=== PATIENT | male | born 1950 | race Caucasian/White ===

== ENCOUNTER 2022-03-03 06:17 | Day surgery (SDC) | payer BC, SELFPAY ==
--- NOTE | 2022-03-02 09:35 | P.CONAN_ITS ---
Documented by User: Andreina Dow NP 03/02/22 09:37 HPI - Anesthesia Eval Consult details Narrative: 71yo M for ?Upper Endoscopy Cardiac cleared REPLACED BY [facility] Active Problems Active Problems: All Active Problems (Updated 03/02/22 @ 07:46 by Karolina Perez, RN) Screening PSA (prostate specific antigen) (Acute) Skin lesion (Acute) Lump of skin of left lower extremity (Acute) Elevated fasting blood sugar (Acute) Encounter for pre-operative examination (Acute) Encounter for annual wellness visit (AWV) in Medicare patient (Acute) HTN (hypertension) (Acute) Past Medical History Medical History (Updated 03/02/22 @ 07:46 by Karolina Perez RN) Barretts esophagus COPD (chronic obstructive pulmonary disease) Coronary artery disease Diastolic dysfunction GERD (gastroesophageal reflux disease) Hiatal hernia HTN (hypertension) Psoriasis Raynauds disease Ventricular ectopy Family History Family History Father Myocardial infarction Mother Breast cancer Surgical History Surgical History (Updated 03/03/22 @ 07:01 by Clementina Zhao) H/O colonoscopy H/O endoscopy History of appendectomy History of cataract surgery History of inguinal hernia repair, bilateral Social History Social History Housing: House Alcohol intake: current Alcohol intake frequency: 3 or more drinks per day Alcohol type: beer Patient Tobacco Use Status: Never used Tobacco e-Cigarette/Vaping Use: Never Used Second Hand Smoke Exposure: No Use of substances other than those prescribed or required for medical reasons: No Are you DNR?: No Advance Directives: No Advance Directives Information Provided: Yes Current occupational status: retired Cognitive needs: No Hearing needs: No Vision needs: No Meds Allergies Allergy/AdvReac Type Severity Reaction Status Date / Time pravastatin Allergy Unknown Verified 03/03/22 06:24 shellfish derived Allergy Unknown Verified 03/03/22 06:24 atorvastatin AdvReac Unknown Diarrhea Verified 03/03/22 06:24 Home Medications Medication Instructions Recorded Confirmed Last Taken Type aspirin 81 mg tablet,delayed 81 mg PO DAILY 04/02/20 03/03/22 02/24/22 History release cholecalciferol (vitamin D3) 50 50 mcg PO DAILY 1103/03/22 03/03/22 05:00 History mcg (2,000 unit) tablet ezetimibe 10 mg tablet 10 mg PO DAILY 04/02/20 03/03/22 Unknown History lisinopril 20 mg tablet 10 mg PO DAILY 04/02/20 03/03/22 03/03/22 05:00 History metoprolol succinate 50 mg capsule 75 mg PO DAILY 04/02/20 03/03/22 03/03/22 05:00 History sprinkle, ext. 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) No change from 2018 Assessment and Plan Assessment Anesthesia Assessment: Chart Reviewed Documented by User: Matteo Tidwell MD 03/03/22 17:13 REPLACED BY [facility] Past Medical History Medical History (Updated 03/02/22 @ 07:46 by Karolina Perez RN) Barretts esophagus COPD (chronic obstructive pulmonary disease) Coronary artery disease Diastolic dysfunction GERD (gastroesophageal reflux disease) Hiatal hernia HTN (hypertension) Psoriasis Raynauds disease Ventricular ectopy Functional capacity: independent ambulation Family History Family History Father Myocardial infarction Mother Breast cancer Family history of problems with anesthesia: No Surgical History Surgical History (Updated 03/03/22 @ 07:01 by Clementina Zhao) H/O colonoscopy H/O endoscopy History of appendectomy History of cataract surgery History of inguinal hernia repair, bilateral History of Problems with Anesthesia: No Social History Social History Housing: House Alcohol intake: current Alcohol intake frequency: 3 or more drinks per day Alcohol type: beer Patient Tobacco Use Status: Never used Tobacco e-Cigarette/Vaping Use: Never Used Second Hand Smoke Exposure: No Use of substances other than those prescribed or required for medical reasons: No Are you DNR?: No Advance Directives: No Advance Directives Information Provided: Yes Current occupational status: retired Cognitive needs: No Hearing needs: No Vision needs: No Meds Allergies Allergy/AdvReac Type Severity Reaction Status Date / Time pravastatin Allergy Unknown Verified 03/03/22 06:24 shellfish derived Allergy Unknown Verified 03/03/22 06:24 atorvastatin AdvReac Unknown Diarrhea Verified 03/03/22 06:24 Home Medications Medication Instructions Recorded Confirmed Last Taken Type aspirin 81 mg tablet,delayed 81 mg PO DAILY 04/02/20 03/03/22 02/24/22 History release cholecalciferol (vitamin D3) 50 50 mcg PO DAILY 04/02/20 03/03/22 03/03/22 05:00 History mcg (2,000 unit) tablet ezetimibe 10 mg tablet 10 mg PO DAILY 04/02/20 03/03/22 Unknown History lisinopril 20 mg tablet 10 mg PO DAILY 04/02/20 03/03/22 03/03/22 05:00 History metoprolol succinate 50 mg capsule 75 mg PO DAILY 04/02/20 03/03/22 03/03/22 05:00 History sprinkle, ext. release 24 hr amlodipine 1 tab PO DAILY 03/03/22 03/03/22 03/03/22 05:00 History Exam Airway Mallampati Class: III TM Dist: >3cm Neck ROM: Full Loose/Missing/Broken Teeth: Yes (Chipped front teeth ) Heart: S1,S2 Lungs: b/l breath sounds Assessment and Plan Assessment Anesthesia Assessment: Anesthesia Plan Discussed Final Anesthetic Review Family History of Problems with Anesthesia: No History of Problems with Anesthesia: No NPO: Yes ASA Class: II Final Preanesthetic Review: Meds/Allgs Chart Reviewed, Consent Obtained/Reviewed and Anes Risks/Benef Reviewed Patient Risk: Intermediate Procedure Risk: Intermediate Anesthetic Plan Anesthetic Plan: MAC: Disposition: Standard PACU
[2022-03-03 06:32] VITALS: BP 142/74; PULSE 58; RESP 16; TEMP 36.6; O2SAT 98; BMI 22.9
[2022-03-03] MEDS: Lactated Ringers 1,000 ML 100 ML IVCONT (06:50)
--- NOTE | 2022-03-03 07:23 | MHC.SHP ---
Pre-Procedural Eval Section A Date of Service: 03/03/22 Section B Chief Complaint: barretts Details of Present Illness: see H&P no changes Relevant Family History (Specify if Yes): No Relevant Social History: None Present Medications: see Short Stay Collaborative assessment Medical History: No relevant PMH History of Previous Operations: No relevant previous surgery Allergies: Allergies Allergy/AdvReac Type Severity Reaction Status Date / Time pravastatin Allergy Unknown Verified 03/03/22 06:24 shellfish derived Allergy Unknown Verified 03/03/22 06:24 atorvastatin AdvReac Unknown Diarrhea Verified 03/03/22 06:24 Review of Systems Sugical H&P ROS: Negative: Constitution, Cardiovascular, Respiratory, Neurological, Psychiatric, Hem-Onc, Allergic/Immunologic, Gastrointestinal, Genitourinary, Musculoskeletal, Integumentary, Endocrine and Eyes/Ears/Nose/Throat Exam Surgical H&P Exam: Normal: HEENT, Normal: Heart, Normal: Lungs, Normal: Extremities, Normal: Abdomen, Normal: Skin and Normal: Neurological Plan Diagnosis/Plan: Unchanged I have reviewed the history and physical and performed a pertinent physical examination on my patient. No changes have occurred unless specified.
--- NOTE | 2022-03-03 07:52 | PM.OP ---
Brief Operative Note Date of Service: 03/03/22 Pre-op diagnosis: barretts Post-op diagnosis: same Procedure: egd Surgeon: Sagar Raza Anesthesia: MAC Was an Drywall Worker used for this Procedure?: No Estimated blood loss (mL): 2 Pathology: other Condition: stable Disposition: PACU
[2022-03-03 07:55] VITALS: BP 106/61; PULSE 59; RESP 16; TEMP 36.3; O2SAT 96
[2022-03-03 08:10] VITALS: BP 112/61; PULSE 63; RESP 14; O2SAT 100
[2022-03-03 08:25] VITALS: BP 138/79; PULSE 61; RESP 16; O2SAT 97
--- NOTE | 2022-03-03 21:04 | OP_ITS ---
SURGEON: Sagar Raza MD PREOPERATIVE DIAGNOSIS: POSTOPERATIVE DIAGNOSIS: PROCEDURE PERFORMED: Upper endoscopy with biopsy. ESTIMATED BLOOD LOSS: COMPLICATIONS: ANESTHESIA: Monitored anesthesia care. ASSISTANTS: SPECIMENS: INDICATION: Loyd esophagus. DESCRIPTION OF PROCEDURE: The procedure was performed on 03/03/2022. A history and physical were performed. The risks and benefits of the procedure were explained to the patient. Informed consent was obtained. The patient was placed in the left lateral decubitus position. The Olympus video gastroscope was introduced into the esophagus, stomach, and duodenum. Examination was performed. The scope was removed. He tolerated the procedure well and returned to the recovery room in stable condition. FINDINGS: Esophagus: The esophagus showed a few whitish plaques in the body. Biopsies were obtained at 40 cm to rule out Lyssa. There was an irregular EG junction with no esophagitis. Biopsies were obtained at the EG junction. Stomach: The stomach showed no evidence of masses, ulcers, or polyps. Duodenum: The bulb and second portion were normal. IMPRESSION: Loyd esophagus. RECOMMENDATION: Follow up the biopsy results. MD LISA Moreno/TITO / [id number]
== END 2022-03-03 09:06 | disposition home or self-care (01) ==
PROVIDERS: PCP Nurse Practitioner Family; Visit Provider Internal Medicine Gastroenterology
PROC: 0DJ08ZZ Inspection of Upper Intestinal Tract, Via Natural or Artificial Opening Endoscopic (ICD-10-PCS; CPT 43235; principal; 2022-03-03 07:30)
DX: K22.70 Barrett's esophagus without dysplasia (principal); K21.9 Gastro-esophageal reflux disease without esophagitis; I10 Essential (primary) hypertension; J44.9 Chronic obstructive pulmonary disease, unspecified; Z79.82 Long term (current) use of aspirin; Z79.899 Other long term (current) drug therapy; Z79.51 Long term (current) use of inhaled steroids; Z88.8 Allergy status to other drugs, medicaments and biological substances
CPT/HCPCS: 43239; 88305

== ENCOUNTER 2023-01-19 06:30 | Outpatient (REF) | payer BC, SELFPAY ==
[2023-01-19 14:07] LABS: CDiff Gene PCR NEGATIVE (Negative)
[2023-01-19 15:18] LABS: Adenovirus F 40/41 Not Detected (Not Detect.); Astrovirus Not Detected (Not Detect.); Campylobacter Not Detected (Not Detect.); Cryptosporidium Not Detected (Not Detect.); Cyclospora cayetanensis Not Detected (Not Detect.); E. coli EAEC Not Detected (Not Detect.); E. coli EPEC Not Detected (Not Detect.); E. coli ETEC Not Detected (Not Detect.); E. coli O157 Not Detected (Not Detect.); E. coli STEC Not Detected (Not Detect.); Entamoeba histolytica Not Detected (Not Detect.); Giardia lamblia Not Detected (Not Detect.); Norovirus GI/GII Not Detected (Not Detect.); Plesiomonas shigelloides Not Detected (Not Detect.); Rotavirus A Not Detected (Not Detect.); Salmonella Not Detected (Not Detect.); Sapovirus Not Detected (Not Detect.); Shigella sp./EIEC Not Detected (Not Detect.); Vibrio Not Detected (Not Detect.); Vibrio Cholerae Not Detected (Not Detect.); Yersinia enterocolitica Not Detected (Not Detect.)
== END 2023-01-19 06:31 | disposition home or self-care (01) ==
LOC: HO.HMGCLNP 06:30
PROVIDERS: PCP Nurse Practitioner Family; Visit Provider Nurse Practitioner Family
DX: R19.7 Diarrhea, unspecified (principal)
CPT/HCPCS: 87338; 87493; 87507

== ENCOUNTER 2023-01-22 13:26 | Outpatient (REF) | payer BC, SELFPAY ==
[2023-01-22 15:56] LABS: MANUAL DIFF FLAG NO
[2023-01-22 16:10] LABS: Basophils Absolute Auto 0.1 X10*3/uL (0.0-0.2); Basophils Percent Auto 1.2 % (0-2); Eosinophils Absolute Auto 0.2 X10*3/uL (0.0-0.4); Eosinophils Percent Auto 3.3 % (0-4); Hematocrit 42.8 % (42.0-52.0); Hemoglobin 14.6 g/dl (14.0-18.0); Imm Gran Abs Auto 0.02 X10*3/uL (0.00-0.03); Imm Gran Pct Auto 0.3 % (0.0-0.4); Lymphocytes Absolute Auto 1.2 X10*3/uL (1.2-4.9); Lymphocytes Percent Auto 17.7 % (20-40); Mean Corpuscular HGB Conc 34.1 g/dl (31.0-36.0); Mean Corpuscular Hemoglobin 32.6 pg (27.0-33.0); Mean Corpuscular Volume 95.5 fL (80.0-98.0); Mean Platelet Volume 11.3 fL (9.4-12.4); Monocytes Absolute Auto 0.9 X10*3/uL (0.1-1.2); Neutrophils Absolute Auto 4.3 x10*3/uL (2.0-8.3); Neutrophils Percent Auto 63.5 % (45-73); Platelet Count 182 X10*3/uL (160-400); Red Blood Count 4.48 X10*6/uL (4.60-5.80); Red Cell Distribution Width 11.9 % (11.0-16.0); White Blood Count 6.7 X10*3/uL (4.8-10.8)
[2023-01-22 16:36] LABS: Alanine Aminotransferase 14 U/L (0-40); Albumin Level 3.9 g/dL (3.5-5.0); Alkaline Phosphatase 57 U/L (39-117); Anion Gap 12 (12-20); Aspartate Amino Transferase 26 U/L (5-37); Bilirubin Total 1.3 mg/dL (0.0-1.0); Blood Urea Nitrogen 14 mg/dL (9-16); C Reactive Protein 0.17 mg/dL (< or = 0.50); Carbon Dioxide 25 mmol/L (22-29); Chloride 107 mmol/L (96-108); Estimated Glomerular Filt Rate > 60; Glucose Random 90 mg/dL (60-115); Potassium 5.1 mmol/L (3.3-5.1); Sodium 139 mmol/L (135-145); TSH reflex Free T4 1.66 uIU/mL (0.32-4.0); Total Protein 6.8 g/dL (6.5-8.0)
[2023-01-22 17:17] LABS: Erythrocyte Sedimentation Rate 5 MM/HR (0-15)
== END 2023-01-22 13:27 | disposition home or self-care (01) ==
LOC: HO.HMGCLDS 13:26
PROVIDERS: PCP Nurse Practitioner Family; Visit Provider Nurse Practitioner Family
DX: R63.4 Abnormal weight loss (principal); R19.7 Diarrhea, unspecified
CPT/HCPCS: 36415; 80053; 84443; 85025; 85652; 86140

== ENCOUNTER 2023-01-29 09:12 | Outpatient (REF) | payer BC, SELFPAY ==
[2023-01-29 11:23] LABS: MANUAL DIFF FLAG NO
[2023-01-29 11:37] LABS: Basophils Absolute Auto 0.1 X10*3/uL (0.0-0.2); Basophils Percent Auto 1.3 % (0-2); Eosinophils Absolute Auto 0.2 X10*3/uL (0.0-0.4); Eosinophils Percent Auto 4.3 % (0-4); Hematocrit 44.5 % (42.0-52.0); Imm Gran Abs Auto 0.01 X10*3/uL (0.00-0.03); Imm Gran Pct Auto 0.2 % (0.0-0.4); Lymphocytes Percent Auto 21.1 % (20-40); Mean Corpuscular HGB Conc 33.7 g/dl (31.0-36.0); Mean Corpuscular Hemoglobin 32.8 pg (27.0-33.0); Mean Corpuscular Volume 97.4 fL (80.0-98.0); Mean Platelet Volume 11.3 fL (9.4-12.4); Monocytes Absolute Auto 0.8 X10*3/uL (0.1-1.2); Monocytes Percent Auto 17.8 % (2-11); Neutrophils Absolute Auto 2.6 x10*3/uL (2.0-8.3); Neutrophils Percent Auto 55.3 % (45-73); Platelet Count 191 X10*3/uL (160-400); Red Blood Count 4.57 X10*6/uL (4.60-5.80); Red Cell Distribution Width 11.9 % (11.0-16.0); White Blood Count 4.7 X10*3/uL (4.8-10.8)
[2023-01-29 12:12] LABS: Alanine Aminotransferase 14 U/L (0-40); Albumin Level 3.8 g/dL (3.5-5.0); Alkaline Phosphatase 56 U/L (39-117); Anion Gap 9 (12-20); Aspartate Amino Transferase 25 U/L (5-37); Bilirubin Total 1.1 mg/dL (0.0-1.0); Blood Urea Nitrogen 12 mg/dL (9-16); Calcium 8.8 mg/dL (8.4-10.2); Carbon Dioxide 29 mmol/L (22-29); Chloride 106 mmol/L (96-108); Cholesterol 132 mg/dL (<200); Estimated Glomerular Filt Rate > 60; Glucose Fasting 99 mg/dL (60-99); HDL Cholesterol 44 mg/dL (>40); LDL Cholesterol Calculated 76 mg/dL (<100); Potassium 4.4 mmol/L (3.3-5.1); Sodium 140 mmol/L (135-145); Total Protein 6.7 g/dL (6.5-8.0); Triglycerides 64 mg/dL (<150)
[2023-01-29 12:33] LABS: TSH reflex Free T4 1.34 uIU/mL (0.32-4.0)
[2023-01-29 12:35] LABS: Prostate Specific Antigen Scr 3.22 ng/mL (<0.05-4.0)
== END 2023-01-29 09:13 | disposition home or self-care (01) ==
LOC: HO.HMGCLDS 09:12
PROVIDERS: PCP Nurse Practitioner Family; Visit Provider Nurse Practitioner Family
DX: Z12.5 Encounter for screening for malignant neoplasm of prostate (principal); I10 Essential (primary) hypertension
CPT/HCPCS: 36415; 80053; 80061; 84153; 84443; 85025

== ENCOUNTER 2023-01-30 06:30 | Outpatient (REF) | payer BC, SELFPAY ==
[2023-01-30 11:56] LABS: Appearance Urine Clear; Color Urine Yellow; Glucose Urine UA Negative (Negative); Leukocyte Esterase Urine Negative (Negative); Nitrite Urine Negative (Negative); PH 6.5 (5.0-9.0); Urine Blood Negative (Negative); Urine Ketones Negative (Negative); Urine Protein Negative (Neg-Trace)
== END 2023-01-30 06:31 | disposition home or self-care (01) ==
LOC: HO.HMGCLNP 06:30
PROVIDERS: PCP Nurse Practitioner Family; Visit Provider Nurse Practitioner Family
DX: I10 Essential (primary) hypertension (principal)
CPT/HCPCS: 81003

== ENCOUNTER 2023-02-10 12:05 | Day surgery (SDC) | payer BC, SELFPAY ==
[2023-02-10 06:26] VITALS: BMI 24.3
[2023-02-10 12:35] VITALS: BP 132/76; PULSE 72; RESP 18; TEMP 36.3; O2SAT 98
[2023-02-10] MEDS: Lactated Ringers 1,000 ML 50 ML IVCONT (12:48)
--- NOTE | 2023-02-10 13:13 | P.CONAN_ITS ---
HPI - Anesthesia Eval Consult details Narrative: for colonoscopy PMFSH Active Problems Active Problems: All Active Problems (Updated 01/28/23 @ 18:07 by Power Ku, [facility]) Colitis (Acute) Enlarged prostate (Acute) Weight loss (Acute) Diarrhea (Acute) Physical exam (Acute) Screening PSA (prostate specific antigen) (Acute) Skin lesion (Acute) Lump of skin of left lower extremity (Acute) Elevated fasting blood sugar (Acute) Encounter for pre-operative examination (Acute) Encounter for annual wellness visit (AWV) in Medicare patient (Acute) HTN (hypertension) (Acute) Past Medical History Medical History Ventricular ectopy Diastolic dysfunction COPD (chronic obstructive pulmonary disease) Raynauds disease Coronary artery disease HTN (hypertension) Hiatal hernia Psoriasis GERD (gastroesophageal reflux disease) Barretts esophagus Family History Family History Father Myocardial infarction Mother Breast cancer Family history of problems with anesthesia: No Surgical History Surgical History History of cataract surgery H/O colonoscopy H/O endoscopy History of inguinal hernia repair, bilateral History of appendectomy History of Problems with Anesthesia: No Social History Social History Housing: House Alcohol intake: current Alcohol intake frequency: does not drink Alcohol type: beer Patient Tobacco Use Status: Never used Tobacco e-Cigarette/Vaping Use: Never Used Second Hand Smoke Exposure: No Are you DNR?: No Advance Directives: No Advance Directives Information Provided: Yes Nutrition Risks: No Nutritional Risk Current occupational status: retired Cognitive needs: No Hearing needs: No Vision needs: No Meds Allergies Allergy/AdvReac Type Severity Reaction Status Date / Time pravastatin Allergy Unknown Verified 08/31/22 11:38 shellfish derived Allergy Unknown Verified 08/31/22 11:38 atorvastatin AdvReac Unknown Diarrhea Verified 08/31/22 11:38 Active Medications: Current Medications Lactated Ringer's (Lr) 1,000 mls @ 50 mls/hr IVCONT .Q20H YO Last Admin: 02/10/23 12:48 Dose: 50 mls/hr Home Medications Medication Instructions Recorded Confirmed Last Taken Type aspirin 81 mg tablet,delayed 81 mg PO DAILY 04/02/20 08/31/22 01/25/23 History release cholecalciferol (vitamin D3) 50 50 mcg PO DAILY 04/02/20 08/31/22 03/03/22 05:00 History mcg (2,000 unit) tablet ezetimibe 10 mg tablet 10 mg PO DAILY 04/02/20 08/31/22 Unknown History lisinopril 20 mg tablet 10 mg PO DAILY 04/02/20 08/31/22 03/03/22 05:00 History metoprolol succinate 50 mg capsule 75 mg PO DAILY 04/02/20 08/31/22 02/10/23 History sprinkle, ext. release 24 hr amlodipine 1 tab PO DAILY 03/03/22 08/31/22 03/03/22 05:00 History Exam Exam Date and Time: February 10, 2023 1313 Height,Weight and Vital Signs: Height 5 ft 11 in Weight 78.925 kg Last Vital Signs Temp 97.4 F 02/10/23 12:35 Pulse 72 02/10/23 12:35 Resp 18 02/10/23 12:35 BP 132/76 02/10/23 12:35 Pulse Ox 98 02/10/23 12:35 O2 Del Method Room Air 02/10/23 12:35 Airway Mallampati Class: II TM Dist: >3cm Neck ROM: Full Heart: rrr Lungs: cta Assessment and Plan Assessment Anesthesia Assessment: Anesthesia Plan Discussed and Chart Reviewed Final Anesthetic Review Family History of Problems with Anesthesia: No History of Problems with Anesthesia: No NPO: Yes ASA Class: III Final Preanesthetic Review: No Changes in Pt Med Stat, Meds/Allgs Chart Reviewed, Consent Obtained/Reviewed and Anes Risks/Benef Reviewed Patient Risk: Low Procedure Risk: Low Anesthetic Plan Anesthetic Plan: MAC: Disposition: Standard PACU
--- NOTE | 2023-02-10 13:39 | MHC.SHP ---
Pre-Procedural Eval Section A Date of Service: 02/10/23 The patient is an INPATIENT: No Changes since office visit: No Cold of Flu in the past 2 weeks, No New Medical Problems, No Changes in Medication and No Patient answered all questions The History & Physical has been completed within 30 days and I have reviewed it.: Yes Section B Chief Complaint: diarrhea,abnormal findings Allergies: Allergies Allergy/AdvReac Type Severity Reaction Status Date / Time pravastatin Allergy Unknown Verified 08/31/22 11:38 shellfish derived Allergy Unknown Verified 08/31/22 11:38 atorvastatin AdvReac Unknown Diarrhea Verified 08/31/22 11:38 Plan I have reviewed the history and physical and performed a pertinent physical examination on my patient. No changes have occurred unless specified. Time Spent With Patient Time: Total time managing care of this patient today ____ minutes.
--- NOTE | 2023-02-10 14:05 | P.BOP_ITS ---
Brief Operative Note Date of Service: 02/10/23 Pre-op diagnosis: diarrhea abnl ct scan Surgeon: Sagar Raza Anesthesia: MAC Was an Slotter Operator Helper used for this Procedure?: No Estimated blood loss (mL): 2 Pathology: other Condition: stable Disposition: PACU
[2023-02-10 14:10] VITALS: BP 127/68; PULSE 65; RESP 16; TEMP 36.9; O2SAT 98
[2023-02-10 14:25] VITALS: BP 142/79; PULSE 60; RESP 18; TEMP 36.1; O2SAT 98
--- NOTE | 2023-02-10 22:55 | OP_ITS ---
DATE OF SERVICE: 02/10/2023 SURGEON: Sagar Raza MD INDICATIONS: Diarrhea and abnormal CT scan of the sigmoid. PREOPERATIVE DIAGNOSIS: POSTOPERATIVE DIAGNOSIS: PROCEDURE PERFORMED: Colonoscopy to the terminal ileum. ESTIMATED BLOOD LOSS: COMPLICATIONS: ANESTHESIA: Monitored anesthesia care. ASSISTANTS: SPECIMENS: DESCRIPTION OF PROCEDURE: A history and physical was performed. The risks and benefits of the procedure were explained to the patient. Informed consent was obtained. The patient was placed in the left lateral decubitus position. A digital rectal exam was performed and was found to be normal. The Olympus pediatric video colonoscope was introduced into the rectum and advanced to the cecum. The cecum was identified by transillumination, palpation, and identification of ileocecal valve. Examination was performed. The scope was removed. He tolerated the procedure well and was returned to the recovery area in stable condition. FINDINGS: The terminal ileum was examined and appeared normal. This was biopsied. The visualized colonic mucosa was normal. The quality of the prep was good with some liquid stool coating the mucosa mainly in the right colon. This was washed and suctioned. No polyps were identified. No colitis was seen. The sigmoid colon was carefully examined and the abnormal area identified on the CT scan. The mucosa appeared normal. There was no evidence of colitis. Biopsies were obtained from the right colon and sigmoid colon. Retroflexed examination showed internal hemorrhoids. IMPRESSION: Normal colonoscopy. RECOMMENDATION: 1. Follow up the biopsy results. 2. Repeat colonoscopy is recommended in 10 years for average risk individuals. This is optional based on his age. MD LISA Moreno/MODL / [id number]
== END 2023-02-10 15:26 | disposition home or self-care (01) ==
PROVIDERS: PCP Nurse Practitioner Family; Visit Provider Internal Medicine Gastroenterology
PROC: 0DJD8ZZ Inspection of Lower Intestinal Tract, Via Natural or Artificial Opening Endoscopic (ICD-10-PCS; CPT 45378; principal; 2023-02-10 13:40)
DX: R93.3 Abnormal findings on diagnostic imaging of other parts of digestive tract (principal); R19.7 Diarrhea, unspecified; K64.8 Other hemorrhoids; I10 Essential (primary) hypertension; B37.81 Candidal esophagitis; J44.9 Chronic obstructive pulmonary disease, unspecified; K21.9 Gastro-esophageal reflux disease without esophagitis; K44.9 Diaphragmatic hernia without obstruction or gangrene; I73.00 Raynaud's syndrome without gangrene; Z79.899 Other long term (current) drug therapy
CPT/HCPCS: 45380; 88305

== ENCOUNTER 2023-04-29 14:13 | Outpatient (AMB) | payer BC, SELFPAY ==
--- NOTE | 2023-04-29 14:29 | MHC.PC.OV ---
Vital Signs 04/29/23 14:30 Height 5 ft 11 in Weight 176 lb BMI 24.5 BP 112/70 Blood Pressure Location Rt brachial Position Sitting Pulse 57 Pulse Source Pulse Oximeter Pulse Oximetry (%) 98 Oxygen Delivery Method Room Air Intake Visit Reasons: 6 month follow up Allergies pravastatin Allergy (Verified 08/31/22 11:38) Unknown shellfish derived Allergy (Verified 08/31/22 11:38) Unknown atorvastatin Adverse Reaction (Unknown, Verified 08/31/22 11:38) Diarrhea Tobacco use date assessed: 08/31/22 Fall risk assessment: No Falls in past year Last assessed Fall Risk: 04/29/23 Dental Screening Dental Screen Date: 04/29/23 Did you have a dental visit in the last 12 months?: Yes Did you have a dental problem in the last 6 months where you did not have access to dental care?: No Was dental information given to patient?: Patient has dentist HPI 6 month follow up HPI Details HTN: Blood pressure is stable, managed with amlodipine 5mg, lisinopril 10mg, and metoprolol 75mg. Denies chest pain, shortness of breath, headache, dizziness, and blurred vision. Pt is following up with urology due to enlarged prostate. [facility] Medical History Ventricular ectopy Diastolic dysfunction COPD (chronic obstructive pulmonary disease) Raynauds disease Coronary artery disease HTN (hypertension) Hiatal hernia Psoriasis GERD (gastroesophageal reflux disease) Barretts esophagus Surgical History History of cataract surgery H/O colonoscopy H/O endoscopy History of inguinal hernia repair, bilateral History of appendectomy Family History Father Myocardial infarction Mother Breast cancer Social History Housing: House Alcohol intake: current Alcohol intake frequency: does not drink Alcohol type: beer Patient Tobacco Use Status: Never used Tobacco e-Cigarette/Vaping Use: Never Used Second Hand Smoke Exposure: No Current occupational status: retired Cognitive needs: No Hearing needs: No Vision needs: No Questionnaire Thrive Questionnaire Date Thrive assessed: 08/31/22 AGUSTO-7 AMB Questionnaire AGUSTO-7 Date AGUSTO - 7 assessed: 08/31/22 Source: Developed by Drs. Amaury Toledo, Corry Casarez, Cristino Stringer and colleagues, with an educational jack from [employer]. Review of Systems Const Reports as per HPI Physical exam (Primary Care) Vital Signs: Last Vital Signs Pulse 57 04/29/23 14:30 BP 112/70 04/29/23 14:30 Pulse Ox 98 04/29/23 14:30 Oxygen Delivery Method Room Air 04/29/23 14:30 BMI result Body Mass Index 24.5 Tobacco/Smoking Status: Tobacco use Status Tobacco use date assessed 08/31/22 04/29/23 14:32 Patient Tobacco Use Status Never used Tobacco 04/29/23 14:32 e-Cigarette/Vaping Use Never Used 04/29/23 14:32 Thrive Assessment: Date of Thrive Assessment Date Thrive assessed 08/31/22 04/29/23 14:32 Const General: cooperative Orientation/consciousness: patient oriented x3 Resp Effort & Inspection: normal respiratory effort Auscultation: clear to auscultation bilaterally Cardio Rate: regular rate Rhythm: regular rhythm Heart sounds: S1 normal heart sound present and S2 normal heart sound present Neuro General: patient oriented x3 Extrem Right lower extremity: no edema Left lower extremity: no edema Psych Appearance: grossly normal Mental Status: mental status grossly normal Speech and movement: Normal speech and movement present Affect: normal affect Attitude: cooperative Thought process: Normal thought process present Thought content: Normal thought content present Insight: Good insight present (Psych) Judgement: Good judgement present (Psych) Assessment and Plan Assessment & Plan (1) HTN (hypertension): Code(s): I10 - Essential (primary) hypertension Coding Level of Care Code Est Pt Level 3 (07198) Diagnoses HTN (hypertension) I10
[2023-04-29 14:30] VITALS: BP 112/70; PULSE 57; O2SAT 98; BMI 24.5
== END 2023-04-29 15:36 | disposition home or self-care (01) ==
PROVIDERS: PCP Nurse Practitioner Family; Visit Provider Nurse Practitioner Family
DX: I10 Essential (primary) hypertension (principal)
CPT/HCPCS: 99213

== ENCOUNTER 2023-09-06 10:10 | Outpatient (AMB) | payer BC, SELFPAY ==
--- NOTE | 2023-09-06 10:30 | MHC.PC.OV ---
Vital Signs 09/06/23 10:33 Weight 180 lb BP 114/60 Blood Pressure Location Rt brachial Position Sitting Pulse 61 Pulse Source Pulse Oximeter Pulse Oximetry (%) 93 Oxygen Delivery Method Room Air Intake Visit Reasons: Annual PE Intake Note: Patient here for physical exam. Allergies pravastatin Allergy (Verified 09/06/23 10:54) Unknown shellfish derived Allergy (Verified 09/06/23 10:54) Unknown atorvastatin Adverse Reaction (Unknown, Verified 09/06/23 10:54) Diarrhea Medication List - Last Reconciled 09/06/23 by BRITNEY Eaton [amlodipine 1 tab PO DAILY] aspirin 81 mg PO DAILY cholecalciferol (vitamin D3) 50 mcg PO DAILY clobetasol 0.05% 1 appl topical BID 2 weeks desoximetasone 0.25% 1 appl topical DAILY PRN 90 days evolocumab (Repatha SureClick) 140 mg subcut Q2W ezetimibe 10 mg PO DAILY fluticasone propionate 50 mcg/actuation 1 spray intranasal DAILY 30 days lisinopril 10 mg PO DAILY metoprolol succinate ER 75 mg PO DAILY omeprazole 20 mg PO DAILY tamsulosin 0.4 mg PO BEDTIME trospium ER 60 mg PO DAILY Tobacco use date assessed: 09/06/23 Fall risk assessment: No Falls in past year Last assessed Fall Risk: 09/06/23 Dental Screening Dental Screen Date: 09/06/23 Did you have a dental visit in the last 12 months?: Yes Did you have a dental problem in the last 6 months where you did not have access to dental care?: No Was dental information given to patient?: Patient has dentist HPI Annual PE HPI Details Pt is here for a PE. Will order labs. PSA is up to date. Pt follows up with cardiology and urology. Colon screen is up to date. [facility] Medical History Ventricular ectopy Diastolic dysfunction COPD (chronic obstructive pulmonary disease) Raynauds disease Coronary artery disease HTN (hypertension) Hiatal hernia Psoriasis GERD (gastroesophageal reflux disease) Barretts esophagus Surgical History History of cataract surgery H/O colonoscopy H/O endoscopy History of inguinal hernia repair, bilateral History of appendectomy Family History Father Myocardial infarction Mother Breast cancer Social History Housing: House Alcohol intake: current Alcohol intake frequency: does not drink Alcohol type: beer Patient Tobacco Use Status: Never used Tobacco e-Cigarette/Vaping Use: Never Used Second Hand Smoke Exposure: No Current occupational status: retired Cognitive needs: No Hearing needs: No Vision needs: No Questionnaire Thrive Questionnaire Date Thrive assessed: 08/31/22 AUDIT C Alcohol Use Questionnaire (AUDIT-C) 1. How often do you have a drink containing alcohol?: 2-4 times a month 2. How many drinks containing alcohol do you have on a typical day when you are drinking?: 1 or 2 3. How often do you have six or more drinks on one occasion?: Never Total Score: 2 Score Reviewed/Action Taken: No AGUSTO-7 AMB Questionnaire AGUSTO-7 Date AGUSTO - 7 assessed: 08/31/22 Source: Developed by Drs. Amaury Toledo, Corry Casarez, Cristino Stringer and colleagues, with an educational jack from [employer]. Review of Systems Const Denies chills and Denies fever(s) Eyes Denies blurry vision ENT Denies vertigo, Denies dizziness and Denies sore throat Card Denies chest pain at rest, Denies chest pain with activity, Denies diaphoresis, Denies dyspnea and Denies dyspnea on exertion Resp Denies cough, Denies dyspnea, Denies dyspnea on exertion and Denies wheezing GI Denies abdominal pain, Denies melena, Denies hematochezia, Denies constipation, Denies diarrhea and Denies loose stools Denies hematuria Musc Denies numbness and Denies tingling Skin/Breast Denies lesions Neuro Denies vertigo, Denies dizziness, Denies numbness and Denies tingling Psych Denies anxiety, Denies depression, Denies homicidal ideation, Denies suicidal ideation and Denies other (substance abuse) Aller/Immun Denies wheezing Physical exam (Primary Care) Vital Signs: Last Vital Signs Pulse 61 09/06/23 10:33 BP 114/60 09/06/23 10:33 Pulse Ox 93 09/06/23 10:33 Oxygen Delivery Method Room Air 09/06/23 10:33 Tobacco/Smoking Status: Tobacco use Status Tobacco use date assessed 09/06/23 09/06/23 10:34 Patient Tobacco Use Status Never used Tobacco 09/06/23 10:34 e-Cigarette/Vaping Use Never Used 09/06/23 10:34 Thrive Assessment: Date of Thrive Assessment Date Thrive assessed 08/31/22 09/06/23 10:34 Const General: cooperative Nutritional Appearance: well nourished Orientation/consciousness: patient oriented x3 HENMT Head: Yes normal to inspection, Yes normocephalic and Yes atraumatic Ears: TM's normal bilaterally Eyes General: appearance normal, both eyes and all related structures Alignment and Position: alignment normal and position normal Neck Neck: Yes normal visual inspection and Yes no lymphadenopathy Thyroid: Thyroid normal Resp Effort & Inspection: normal respiratory effort Auscultation: clear to auscultation bilaterally Cardio Rate: regular rate Rhythm: regular rhythm Heart sounds: S1 normal heart sound present, S2 normal heart sound present and no murmurs GI Palpation (GI): Soft to palpation and nontender Auscultation: normal bowel sounds Male General Exam: Yes normal external exam Penis: normal penis Scrotum: scrotum normal, testes descended bilaterally and no inguinal hernias Testes: no testicular mass Skin Rashes: no rashes Neuro General: patient oriented x3, moves all extremities, no focal motor deficits and deep tendon reflexes 2+ bilaterally Romberg Test: Negative Extrem Right lower extremity: no edema Left lower extremity: no edema Psych Appearance: grossly normal Mental Status: mental status grossly normal Speech and movement: Normal speech and movement present Affect: normal affect Attitude: cooperative Thought process: Normal thought process present Thought content: Normal thought content present Insight: Good insight present (Psych) Judgement: Good judgement present (Psych) Assessment and Plan Assessment & Plan (1) Physical exam: Code(s): Z00.00 - Encounter for general adult medical examination without abnormal findings Plan: Labs ordered Orders: Orders Complete Blood Count Auto Diff Today Z00.00 - Encounter for general adult medical examination without abnormal findings Comprehensive Bronson. Panel Fast Today Z00.00 - Encounter for general adult medical examination without abnormal findings TSH reflex Free T4 Today Z00.00 - Encounter for general adult medical examination without abnormal findings UA CC w/rflx Micro + Cult Today Z00.00 - Encounter for general adult medical examination without abnormal findings Lipid Panel Today Z00.00 - Encounter for general adult medical examination without abnormal findings Vitamin D 25-OH Total Today Z00.00 - Encounter for general adult medical examination without abnormal findings Coding Level of Care Code Est Pt Prev Care >65y(01375) Diagnoses Physical exam Z00.00
[2023-09-06 10:33] VITALS: BP 114/60; PULSE 61; O2SAT 93
== END 2023-09-06 11:13 | disposition home or self-care (01) ==
PROVIDERS: Visit Provider Nurse Practitioner Family
DX: Z00.00 Encounter for general adult medical examination without abnormal findings (principal)
CPT/HCPCS: 99397

== ENCOUNTER 2023-11-06 09:04 | Outpatient (AMB) | payer BC, SELFPAY ==
[2023-11-06 09:07] VITALS: BP 120/7; PULSE 65; TEMP 36.6; O2SAT 95; BMI 24.4
--- NOTE | 2023-11-06 09:07 | MHC.OFFWIV ---
Intake Vital Signs 11/06/23 09:07 Height 5 ft 11 in Weight 175 lb BMI 24.4 BP 120/7 L Blood Pressure Location Lt brachial Position Sitting Pulse 65 Pulse Source Pulse Oximeter Temp 97.8 F Temp Source Temporal Artery Scan Pulse Oximetry (%) 95 Oxygen Delivery Method Room Air Intake Visit Reasons: EP Ciugh, mucus, sinus Intake Note: pt is here today for cough mucus sinus started 2 days ago Patient Tobacco Use Status: Never used Tobacco Allergies pravastatin Allergy (Verified 11/06/23 09:14) Unknown shellfish derived Allergy (Verified 11/06/23 09:14) Unknown atorvastatin Adverse Reaction (Unknown, Verified 11/06/23 09:14) Diarrhea Do you need a note to return to daycare/school/sports/work: No HPI EP Ciugh, mucus, sinus HPI Details Patient is a 73-year-old male with a history of coronary artery disease and COPD, comes to the walk-in clinic complaining of acute nasal congestion, headache, dry cough, and sinus pressure for the last few days. He tested positive on a home test for COVID today. He denies severe sore throat, chest pain, shortness of breath, nausea vomiting or diarrhea, weakness or dizziness, myalgias or malaise, ear pain, or other significant associated symptoms. [facility] Medical History Ventricular ectopy Diastolic dysfunction COPD (chronic obstructive pulmonary disease) Raynauds disease Coronary artery disease HTN (hypertension) Hiatal hernia Psoriasis GERD (gastroesophageal reflux disease) Barretts esophagus Surgical History History of cataract surgery H/O colonoscopy H/O endoscopy History of inguinal hernia repair, bilateral History of appendectomy Family History Father Myocardial infarction Mother Breast cancer Social History Housing: House Alcohol intake: current Alcohol intake frequency: does not drink Alcohol type: beer Patient Tobacco Use Status: Never used Tobacco e-Cigarette/Vaping Use: Never Used Second Hand Smoke Exposure: No Current occupational status: retired Cognitive needs: No Hearing needs: No Vision needs: No Review of Systems Const All systems reviewed & are unremarkable except as noted in HPI and below Physical Exam Vital Signs: Last Vital Signs Temp 97.8 F 11/06/23 09:07 Pulse 65 11/06/23 09:07 BP 120/7 L 11/06/23 09:07 Pulse Ox 95 11/06/23 09:07 Oxygen Delivery Method Room Air 11/06/23 09:07 BMI result Body Mass Index 24.4 Const General: cooperative, healthy appearing, comfortable, no acute distress, alert, awake, Physically active and well groomed; No anxious, diaphoretic, intoxicated appearing, poor hygiene or tired appearing Nutritional Appearance: average body habitus Orientation/consciousness: oriented to person Limitations: no limitations HEENT Head: Yes normal to inspection, Yes normocephalic and Yes atraumatic Ears: hearing grossly normal bilaterally, external ears normal, TM's normal bilaterally and EAC's normal General nose exam: Normal external nose present and Nasal discharge present Face and sinus: Yes normal facial exam, Yes sinuses nontender and Yes face symmetric Mouth: Normal oral and palatal mucosa present, lip normal and tongue normal Throat: Yes posterior oropharynx normal, No peritonsillar mass, Yes postnasal drainage, No uvular edema and No cobblestoning Eyes General: appearance normal, both eyes and all related structures Neck Neck: Yes normal visual inspection, Yes supple and No anterior neck swelling Chest Chest palpation & inspection: normal palpation of entire chest wall Resp Effort & Inspection: normal respiratory effort, able to speak in complete sentences, no audible wheezes, no cough, no grunting, not labored, no nasal flaring, no retractions and symmetric chest movement Auscultation: clear to auscultation bilaterally, no crackles, no rales, no rhonchi, no wheezes, lung sounds not diminished and No rub present Cardio Palpation: normal PMI Rate: regular rate Rhythm: regular rhythm Heart sounds: S1 normal heart sound present and S2 normal heart sound present Skin Other: Good color, warm and dry Neuro General: oriented to person Psych Appearance: grossly normal Mental Status: mental status grossly normal Speech and movement: Normal speech and movement present Affect: normal affect Attitude: cooperative Thought process: Normal thought process present Insight: Good insight present (Psych) Judgement: Good judgement present (Psych) Assessment & Plan Assessment & Plan (1) COVID: Code(s): U07.1 - COVID-19 Plan: Patient is a 73-year-old male with history of COPD and coronary artery disease, who comes to the walk-in clinic complaining of viral symptoms associated with COVID. He is more worried about transmitting this to his , who plans to undergo minor surgery in a few days. I discussed with him that due to his history and age, he is high-risk for having issues associated with COVID, so Paxlovid was prescribed today. He has no active cough, shortness of breath or respiratory distress, so we withheld on a chest x-ray today. He will take [id number] medication as needed otherwise for symptom relief, and guaifenesin was called in for him today. He will monitor symptoms and follow up if they persist or worsen. He knows to go to the emergency department for worrisome symptoms. Medications: New nirmatrelvir-ritonavir 300 mg (150 mg x 2)-100 mg (Paxlovid) take TWO 150 mg tablets of nirmatrelvir with ONE 100 mg tablet of ritonavir twice daily for 5 days PO 30 ea 0RF guaifenesin 400 mg PO TID PRN 30 tabs 1RF congestion Coding Level of Care Code Est Pt Level 4 (04791) Diagnoses COVID U07.1
== END 2023-11-06 10:15 | disposition home or self-care (01) ==
PROVIDERS: PCP Nurse Practitioner Family; Visit Provider Physician Assistant Medical
DX: U07.1 COVID-19 (principal)
CPT/HCPCS: 99214

== ENCOUNTER 2023-12-10 10:44 | Outpatient (AMB) | payer BC, SELFPAY ==
--- NOTE | 2023-12-10 10:45 | MHC.OFFWIV ---
Intake Vital Signs 12/10/23 10:47 Height 5 ft 11 in Weight 175 lb BMI 24.4 BP 128/62 Blood Pressure Location Rt brachial Position Sitting Pulse 63 Pulse Source Pulse Oximeter Temp 97.0 F Temp Source Temporal Artery Scan Pulse Oximetry (%) 97 Oxygen Delivery Method Room Air Intake Visit Reasons: EP Lower RT back pain Intake Note: pt c/o Lower RT back pain. Twisted back while lifting a ladder yesterday Patient Tobacco Use Status: Never used Tobacco Allergies pravastatin Allergy (Verified 12/10/23 10:46) Unknown shellfish derived Allergy (Verified 12/10/23 10:46) Unknown atorvastatin Adverse Reaction (Unknown, Verified 12/10/23 10:46) Diarrhea Do you need a note to return to daycare/school/sports/work: No HPI HPI Comments History of Present Illness Details 73 y/o male patient who presents to the walk in clinic with c/o low back pain since yesterday. 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 Reports feeling sharp pain immediately. Denies urinary or bowel symptoms. Denies prior surgeries on the back. [facility] Medical History Ventricular ectopy Diastolic dysfunction COPD (chronic obstructive pulmonary disease) Raynauds disease Coronary artery disease HTN (hypertension) Hiatal hernia Psoriasis GERD (gastroesophageal reflux disease) Barretts esophagus Surgical History History of cataract surgery H/O colonoscopy H/O endoscopy History of inguinal hernia repair, bilateral History of appendectomy Family History Father Myocardial infarction Mother Breast cancer Social History Housing: House Alcohol intake: current Alcohol intake frequency: does not drink Alcohol type: beer Patient Tobacco Use Status: Never used Tobacco e-Cigarette/Vaping Use: Never Used Second Hand Smoke Exposure: No Current occupational status: retired Cognitive needs: No Hearing needs: No Vision needs: No Review of Systems Const All systems reviewed & are unremarkable except as noted in HPI and below Physical Exam Vital Signs: Last Vital Signs Temp 97.0 F 12/10/23 10:47 Pulse 63 12/10/23 10:47 BP 128/62 12/10/23 10:47 Pulse Ox 97 12/10/23 10:47 Oxygen Delivery Method Room Air 12/10/23 10:47 BMI result Body Mass Index 24.4 Const General: comfortable and no acute distress Nutritional Appearance: well nourished Orientation/consciousness: patient oriented x3 Back/Spine/Pelvis Back: back tenderness Thoracic/Lumbar Spine: thoraco-lumbar ROM normal, thoraco-lumbar spasm on the right and lumbar spinal tenderness at L4 and at L5 Neuro General: patient oriented x3, gait normal and moves all extremities Psych Speech and movement: Normal speech and movement present Assessment & Plan Assessment & Plan (1) Low back pain: Code(s): M54.50 - Low back pain, unspecified Qualifiers: Chronicity: acute Back pain laterality: right Sciatica presence: without sciatica Qualified Code(s): M54.50 - Low back pain, unspecified Plan: Get some rest, avoid lifting heavy objects, bending at the waist and prolonged Sitting. IceHot Acetaminophen and Ibuprofen for pain relief RTC if not better. Medications: New ibuprofen 600 mg PO Q6H PRN 20 tabs 0RF pain M54.50 - Low back pain, unspecified prednisone 20 mg PO DAILY 10 days 10 tabs 0RF M54.50 - Low back pain, unspecified cyclobenzaprine 10 mg PO BEDTIME 10 tabs 0RF M54.50 - Low back pain, unspecified lidocaine 5% leave on most painful area for up to 12 hrs 1 patch topical DAILY 15 ea 0RF M54.50 - Low back pain, unspecified Discontinued fluticasone propionate 50 mcg/actuation administer into each nostril Discontinued Reason: Patient Completed Course 1 spray intranasal DAILY 30 days 15.8 mL 2RF guaifenesin Discontinued Reason: Patient Completed Course 400 mg PO TID PRN 30 tabs 1RF congestion Coding Level of Care Code Est Pt Level 3 (45600) Diagnoses Acute right-sided low back pain without sciatica M54.50 Chronicity: acute Back pain laterality: right Sciatica presence: without sciatica Time Spent (min) 15
[2023-12-10 10:47] VITALS: BP 128/62; PULSE 63; TEMP 36.1; O2SAT 97; BMI 24.4
== END 2023-12-10 11:06 | disposition home or self-care (01) ==
PROVIDERS: PCP Nurse Practitioner Family; Visit Provider Nurse Practitioner Family
DX: M54.50 Low back pain, unspecified (principal)
CPT/HCPCS: 99213

== ENCOUNTER 2024-02-14 09:41 | Outpatient (AMB) | payer BC, SELFPAY ==
--- NOTE | 2024-02-14 09:44 | A.OFFPC_ITS ---
Vital Signs 02/14/24 09:45 Height 5 ft 11 in Weight 179 lb 8 oz BMI 25.0 BP 120/60 Blood Pressure Location Lt brachial Position Sitting Pulse 50 Pulse Source Pulse Oximeter Pulse Oximetry (%) 98 Oxygen Delivery Method Room Air Intake Visit Reasons: 6M F/U Allergies pravastatin Allergy (Verified 02/14/24 09:46) Unknown shellfish derived Allergy (Verified 02/14/24 09:46) Unknown atorvastatin Adverse Reaction (Unknown, Verified 02/14/24 09:46) Diarrhea Tobacco use date assessed: 02/14/24 Fall risk assessment: No Falls in past year Last assessed Fall Risk: 02/14/24 Dental Screening Dental Screen Date: 02/14/24 HPI 6M F/U HPI Details HTN: Blood pressure is stable, managed with amlodipine 5mg, lisinopril 10mg, and metoprolol. Dyslipidemia: Pt is on repatha. Awaiting labs. Denies chest pain, shortness of breath, headache, dizziness, and blurred vision. [facility] Medical History Ventricular ectopy Diastolic dysfunction COPD (chronic obstructive pulmonary disease) Raynauds disease Coronary artery disease HTN (hypertension) Hiatal hernia Psoriasis GERD (gastroesophageal reflux disease) Barretts esophagus Surgical History History of cataract surgery H/O colonoscopy H/O endoscopy History of inguinal hernia repair, bilateral History of appendectomy Family History Father Myocardial infarction Mother Breast cancer Social History Housing: House Alcohol intake: current Alcohol intake frequency: does not drink Alcohol type: beer Patient Tobacco Use Status: Never used Tobacco e-Cigarette/Vaping Use: Never Used Second Hand Smoke Exposure: No service: No Current occupational status: retired Cognitive needs: No Hearing needs: No Vision needs: No Questionnaire PHQ-9 Over the last 2 weeks, how often have you been bothered by any of the following problems? 1. Little interest or pleasure in doing things: not at all 2. Feeling down, depressed, or hopeless: not at all 3. Trouble falling or staying asleep, or sleeping too much: not at all 4. Feeling tired or having little energy: not at all 5. Poor appetite or overeating: not at all 6. Feeling bad about yourself - or that you are a failure or have let yourself or your family down: not at all 7. Trouble concentrating on things, such as reading the newspaper or watching television: not at all 8. Moving or speaking so slowly that other people could have noticed. Or the opposite - being so fidgety or restless that you have been moving around a lot more than usual: not at all 9. Thoughts that you would be better off or of hurting yourself in some way: not at all Total score: 0 Depression Screening Interpretation: Negative Depression Screening Done: Yes 76034 - PHQ-9 Billing: Yes Source: Developed by Drs. Amaury Toledo, Corry Casarez, Cristino Stringer and colleagues, with an educational jack from [employer] Thrive Questionnaire Date Thrive assessed: 02/14/24 I am a: Patient What is your living situation today?: I have a steady place to live Within the past 12 months, did the food you bought not last and you didn't have the money to get more?: Never true Within the past 12 months, did you worry whether your food would run out before you got money to buy more?: Never true Do you have trouble paying for medicines?: No Do you have trouble getting transportation to medical appointments?: No Do you have trouble paying your heating and electricity bill?: No Do you have trouble taking care of your child, family member or friend?: No Do you have trouble with day-to-day activities such as bathing, preparing meals, shopping, managing finances, etc.?: No Are you currently unemployed and looking for a job?: No Are you interested in more education?: No Please select the resources that you would like help with: None Currently or been in a relationship where the following occur: No concerns reported THRIVE Score: 0 AUDIT C Alcohol Use Questionnaire (AUDIT-C) 1. How often do you have a drink containing alcohol?: 2-3 times a week 2. How many drinks containing alcohol do you have on a typical day when you are drinking?: 1 or 2 3. How often do you have six or more drinks on one occasion?: Never Total Score: 3 Score Reviewed/Action Taken: Yes AGUSTO-7 AMB Questionnaire AGUSTO-7 Date AGUSTO - 7 assessed: 02/14/24 Feeling nervous, anxious, or on edge: 0 = Not at all Not being able to stop or control worryin = Not at all Worrying too much about different things: 0 = Not at all Trouble relaxin = Not at all Being so restless that it is hard to sit still: 0 = Not at all Becoming easily annoyed or irritable: 0 = Not at all Feeling afraid as if something awful might happen: 0 = Not at all Total AGUSTO-7 score (0-4 normal; 5-9 mild; 10-14 moderate; 15-21 severe): 0 Source: Developed by Drs. Amaury Toledo, Corry Casarez, Cristino Stringer and colleagues, with an educational jack from [employer] AGUSTO-7 Assessment Billing AGUSTO-7 Assessment Tool: AGUSTO-7 Assessment 03411 Review of Systems Const Reports as per HPI Physical exam (Primary Care) Vital Signs: Last Vital Signs Pulse 50 02/14/24 09:45 BP 120/60 02/14/24 09:45 Pulse Ox 98 02/14/24 09:45 Oxygen Delivery Method Room Air 02/14/24 09:45 BMI result Body Mass Index 25.0 Tobacco/Smoking Status: Tobacco use Status Tobacco use date assessed 02/14/24 02/14/24 09:46 Patient Tobacco Use Status Never used Tobacco 02/14/24 09:46 e-Cigarette/Vaping Use Never Used 02/14/24 09:46 PHQ-9: PHQ-9 Score PHQ-9: Total score 0 02/14/24 10:05 Depression Screening Interpretation: Negative Thrive Assessment: Date of Thrive Assessment Date Thrive assessed 02/14/24 02/14/24 09:46 Currently or been in a relationship where the following occur: No concerns reported Const General: cooperative Orientation/consciousness: patient oriented x3 Resp Effort & Inspection: normal respiratory effort Auscultation: clear to auscultation bilaterally Cardio Rate: regular rate Rhythm: regular rhythm Heart sounds: S1 normal heart sound present and S2 normal heart sound present Neuro General: patient oriented x3 Psych Appearance: grossly normal Mental Status: mental status grossly normal Speech and movement: Normal speech and movement present Affect: normal affect Attitude: cooperative Thought process: Normal thought process present Thought content: Normal thought content present Insight: Good insight present (Psych) Judgement: Good judgement present (Psych) Coding Level of Care Code Est Pt Level 3 (13479) Diagnoses HTN (hypertension) I10 Additional Codes AGUSTO-7 Assessment Billing - AGUSTO-7 Assessment Tool: AGUSTO-7 Assessment 37954 ([id number]) Assessment & Plan Assessment & Plan (1) HTN (hypertension): Code(s): I10 - Essential (primary) hypertension Category: Medical Plan: on repatha for LDL, on a jeffy,BB, and CCB.
[2024-02-14 09:45] VITALS: BP 120/60; PULSE 50; O2SAT 98; BMI 25.0
== END 2024-02-14 16:13 | disposition home or self-care (01) ==
PROVIDERS: PCP Nurse Practitioner Family; Visit Provider Nurse Practitioner Family
DX: I10 Essential (primary) hypertension (principal)

== ENCOUNTER → 2024-02-14 09:41 | Outpatient (BNVA) | payer BC, SELFPAY | PROVIDERS: PCP Nurse Practitioner Family; Visit Provider Nurse Practitioner Family | DX: I10 Essential (primary) hypertension (principal); Z79.899 Other long term (current) drug therapy | CPT/HCPCS: 96127 ==

== ENCOUNTER 2024-02-22 10:40 | Outpatient (REF) | payer BC, SELFPAY ==
[2024-02-22 11:04] LABS: MANUAL DIFF FLAG NO
[2024-02-22 11:31] LABS: Basophils Absolute Auto 0.1 X10*3/uL (0.0-0.2); Basophils Percent Auto 0.8 % (0-2); Eosinophils Absolute Auto 0.2 X10*3/uL (0.0-0.4); Eosinophils Percent Auto 3.4 % (0-4); Imm Gran Abs Auto 0.01 X10*3/uL (0.00-0.03); Imm Gran Pct Auto 0.2 % (0.0-0.4); Lymphocytes Absolute Auto 1.1 X10*3/uL (1.2-4.9); Lymphocytes Percent Auto 18.5 % (20-40); Mean Corpuscular HGB Conc 34.1 g/dl (31.0-36.0); Mean Corpuscular Hemoglobin 32.6 pg (27.0-33.0); Mean Corpuscular Volume 95.7 fL (80.0-98.0); Mean Platelet Volume 10.1 fL (9.4-12.4); Monocytes Absolute Auto 0.9 X10*3/uL (0.1-1.2); Monocytes Percent Auto 14.9 % (2-11); Neutrophils Absolute Auto 3.8 x10*3/uL (2.0-8.3); Neutrophils Percent Auto 62.2 % (45-73); Platelet Count 200 X10*3/uL (160-400); Red Cell Distribution Width 12.7 % (11.0-16.0); White Blood Count 6.1 X10*3/uL (4.8-10.8)
[2024-02-22 12:09] LABS: Anion Gap 9 (12-20); Carbon Dioxide 28 mmol/L (22-29); Chloride 105 mmol/L (96-108); Potassium 4.3 mmol/L (3.3-5.1); Sodium 138 mmol/L (135-145)
[2024-02-22 12:37] LABS: TSH reflex Free T4 1.67 uIU/mL (0.32-4.0); Vitamin D 25-OH Total 54.2 ng/mL (>30)
== END 2024-02-22 10:41 | disposition home or self-care (01) ==
LOC: HO.LAB 10:40
PROVIDERS: PCP Nurse Practitioner Family; Visit Provider Nurse Practitioner Family
DX: Z00.00 Encounter for general adult medical examination without abnormal findings (principal); E87.5 Hyperkalemia
CPT/HCPCS: 36415; 80051; 82306; 84443; 85025

== ENCOUNTER 2024-09-07 13:38 | Outpatient (AMB) | payer BC, SELFPAY ==
[2024-09-07 13:43] VITALS: BP 120/62; PULSE 63; O2SAT 97; BMI 25.0
--- NOTE | 2024-09-07 13:43 | A.OFFPC_ITS ---
Vital Signs 09/07/24 13:43 Height 5 ft 11 in Weight 179 lb BMI 25.0 BP 120/62 Blood Pressure Location Rt brachial Position Sitting Pulse 63 Pulse Source Pulse Oximeter Pulse Oximetry (%) 97 Oxygen Delivery Method Room Air Intake Visit Reasons: Annual PE Cleaning Maid Required: No Accompanied by: Self / Same As Patient Allergies pravastatin Allergy (Verified 09/07/24 14:22) Unknown shellfish derived Allergy (Verified 09/07/24 14:22) Unknown atorvastatin Adverse Reaction (Unknown, Verified 09/07/24 14:22) Diarrhea Medication List - Last Reconciled 09/07/24 by Power Ku, [facility]- amlodipine 5 mg PO DAILY aspirin 81 mg PO DAILY cholecalciferol (vitamin D3) 50 mcg PO DAILY clobetasol 0.05% 1 appl topical BID 2 weeks desoximetasone 0.25% 1 appl topical DAILY PRN 90 days evolocumab (Repatha SureClick) 140 mg subcut Q2W ibuprofen 600 mg PO Q6H PRN lidocaine 5% 1 patch topical DAILY lisinopril 10 mg PO DAILY metoprolol succinate ER mg PO omeprazole 20 mg PO DAILY tamsulosin 0.4 mg PO BEDTIME trospium ER 60 mg PO DAILY Tobacco use date assessed: 09/07/24 Fall risk assessment: No Falls in past year Last assessed Fall Risk: 09/07/24 Dental Screening Dental Screen Date: 09/07/24 Did you have a dental visit in the last 12 months?: Yes Did you have a dental problem in the last 6 months where you did not have access to dental care?: No Was dental information given to patient?: Patient has dentist HPI Annual PE HPI Details History of Present Illness The patient is a 74-year-old male presenting for a physical examination. He has ongoing consultations with both a sheet metal work furnace installer and a urologist. As such, a Prostate-Specific Antigen (PSA) test was not ordered. During the visit, the patient denied any febrile symptoms, visual disturbances, respiratory distress, gastrointestinal complaints, or urinary concerns. His stool habits are normal, with no reported episodes of incontinence. He mentioned having undergone a colonoscopy the previous year, with pending efforts to retrieve those results for review. Health Maintenance - Colonoscopy completed last year; detai ls pending - Regular cardiology follow-up - Regular urology follow-up Social History Review of Systems - Constitutional: Denies fevers, chills - Eyes: Denies blurred vision - Cardiovascular: Denies chest pain - Respiratory: Denies shortness of breat h - Gastrointestinal: Denies abdominal vivek n, blood in stool, constipation, diarrhea - Genitourinary: Denies urinary issues -denies any si or hi Physical Exam General: Cooperative, healthy appearing, comfortable, no acute distress and well developed Orientation: Patient oriented x3 Limitations: No limitations Head: Normal to inspection Ears: Hearing grossly normal bilaterally Nose: Normal external nose present Face and sinus: Normal facial exam Eyes: Appearance normal, both eyes and all related structures Neck: Normal visual inspection and Yes full ROM Respiratory: Normal respiratory effort and able to speak in complete sentences. Clear to auscultation bilaterally Cardiovascular: Regular rate and rhythm. Normal S1 and S2 GI: Normal to inspection. Soft to palpation and nontender Skin: No rashes or lesions noted Neuro: Patient oriented x3 Extremities: Normal to inspection Results - Colonoscopy completed last year; resul ts to be confirmed Plan This visit focused on a routine physical examination. The patient's coordination of care with his sheet metal work furnace installer and urologist supports adequate management of those ongoing health issues, so additional testing, including Prostate-Specific Antigen PSA), was not performed. Cardiovascular and respiratory examinations were normal, and no immediate interventions were necessary. Retrieval of past colonoscopy findings will be pursued to better assess gastrointestinal health. Discussion Notes During the consultation, we discussed the nature and rationale for avoiding the Prostate-Specific Antigen (PSA) test, given his active management by a urologist. I emphasized the importance of continuing regular check-ups with both his sheet metal work furnace installer and urologist to manage chronic conditions effectively. We agreed to follow up on obtaining the results from his colonoscopy performed last year, and I assured him that these notes would be evaluated once available. Patient Instructions - Continue regular follow-up with your c ardiologist and urologist. - Stay alert for any unusual symptoms an d report them promptly. - Await contact regarding last year's co lonoscopy results. [facility] Medical History Ventricular ectopy Diastolic dysfunction COPD (chronic obstructive pulmonary disease) Raynauds disease Coronary artery disease HTN (hypertension) Hiatal hernia Psoriasis GERD (gastroesophageal reflux disease) Barretts esophagus Surgical History History of cataract surgery H/O colonoscopy H/O endoscopy History of inguinal hernia repair, bilateral History of appendectomy Family History Father Myocardial infarction Mother Breast cancer Social History Housing: House Alcohol intake: current Alcohol intake frequency: does not drink Alcohol type: beer Patient Tobacco Use Status: Never used Tobacco e-Cigarette/Vaping Use: Never Used Second Hand Smoke Exposure: No service: No Current occupational status: retired Cognitive needs: No Hearing needs: No Vision needs: No Questionnaire PHQ-9 Over the last 2 weeks, how often have you been bothered by any of the following problems? 1. Little interest or pleasure in doing things: not at all 2. Feeling down, depressed, or hopeless: not at all 3. Trouble falling or staying asleep, or sleeping too much: not at all 4. Feeling tired or having little energy: not at all 5. Poor appetite or overeating: not at all 6. Feeling bad about yourself - or that you are a failure or have let yourself or your family down: not at all 7. Trouble concentrating on things, such as reading the newspaper or watching television: not at all 8. Moving or speaking so slowly that other people could have noticed. Or the opposite - being so fidgety or restless that you have been moving around a lot more than usual: not at all 9. Thoughts that you would be better off or of hurting yourself in some way: not at all Total score: 0 Depression Screening Interpretation: Negative Depression Screening Done: Yes 99469 - PHQ-9 Billing: Yes Source: Developed by Drs. Amaury Toledo, Corry Casarez, Cristino Stringer and colleagues, with an educational jack from [employer]. Thrive Questionnaire Date Thrive assessed: 09/07/24 I am a: Patient What is your living situation today?: I have a steady place to live Within the past 12 months, did the food you bought not last and you didn't have the money to get more?: Never true Within the past 12 months, did you worry whether your food would run out before you got money to buy more?: Never true Do you have trouble paying for medicines?: No Do you have trouble getting transportation to medical appointments?: No Do you have trouble paying your heating and electricity bill?: No Do you have trouble taking care of your child, family member or friend?: No Do you have trouble with day-to-day activities such as bathing, preparing meals, shopping, managing finances, etc.?: No Are you currently unemployed and looking for a job?: No Are you interested in more education?: No Please select the resources that you would like help with: None Currently or been in a relationship where the following occur: No concerns reported THRIVE Score: 0 AUDIT C Alcohol Use Questionnaire (AUDIT-C) 1. How often do you have a drink containing alcohol?: 4 or more times a week 2. How many drinks containing alcohol do you have on a typical day when you are drinking?: 3 or 4 3. How often do you have six or more drinks on one occasion?: Never Total Score: 5 Score Reviewed/Action Taken: Yes AGUSTO-7 AMB Questionnaire AGUSTO-7 Date AGUSTO - 7 assessed: 09/07/24 Feeling nervous, anxious, or on edge: 0 = Not at all Not being able to stop or control worryin = Not at all Worrying too much about different things: 0 = Not at all Trouble relaxin = Not at all Being so restless that it is hard to sit still: 0 = Not at all Becoming easily annoyed or irritable: 0 = Not at all Feeling afraid as if something awful might happen: 0 = Not at all Total AGUSTO-7 score (0-4 normal; 5-9 mild; 10-14 moderate; 15-21 severe): 0 Source: Developed by Drs. Amaury Toledo, Corry Casarez, Cristino Stringer and colleagues, with an educational jack from [employer]. AGUSTO-7 Assessment Billing AGUSTO-7 Assessment Tool: AGUSTO-7 Assessment 38295 Physical exam (Primary Care) Vital Signs: Last Vital Signs Pulse 63 09/07/24 13:43 BP 120/62 09/07/24 13:43 Pulse Ox 97 09/07/24 13:43 Oxygen Delivery Method Room Air 09/07/24 13:43 BMI result Body Mass Index 25.0 Tobacco/Smoking Status: Tobacco use Status Tobacco use date assessed 09/07/24 09/07/24 13:45 Patient Tobacco Use Status Never used Tobacco 09/07/24 13:45 e-Cigarette/Vaping Use Never Used 09/07/24 13:45 PHQ-9: PHQ-9 Score PHQ-9: Total score 0 09/07/24 13:54 Depression Screening Interpretation: Negative Thrive Assessment: Date of Thrive Assessment Date Thrive assessed 09/07/24 09/07/24 13:45 Currently or been in a relationship where the following occur: No concerns reported Coding Level of Care Code Est Pt Prev Care >65y(92005) Diagnoses Physical exam Z00. Vitamin D deficiency E55.9 Additional Codes AGUSTO-7 Assessment Billing - AGUSTO-7 Assessment Tool: AGUSTO-7 Assessment 73007 ([id number]) PHQ-9 - 96422 - PHQ-9 Billing: Yes ([id number]) Assessment & Plan Assessment & Plan (1) Physical exam: Code(s): Z00.00 - Encounter for general adult medical examination without abnormal findings Category: Medical (2) Vitamin D deficiency: Code(s): E55.9 - Vitamin D deficiency, unspecified Category: Medical Plan . Orders: Orders Complete Blood Count Auto Diff Today Z00.00 - Encounter for general adult medical examination without abnormal findings Comprehensive [place]. Panel Fast Today Z00.00 - Encounter for general adult medical examination without abnormal findings TSH reflex Free T4 Today Z00.00 - Encounter for general adult medical examination without abnormal findings UA CC w/rflx Micro + Cult Today Z00.00 - Encounter for general adult medical examination without abnormal findings Vitamin D 25-OH Total Today E55.9 - Vitamin D deficiency, unspecified, Z00.00 - Encounter for general adult medical examination without abnormal findings Lipid Panel Today Z00.00 - Encounter for general adult medical examination without abnormal findings
== END 2024-09-07 14:50 | disposition home or self-care (01) ==
LOC: HO.HMCC 13:39
PROVIDERS: PCP Nurse Practitioner Family; Visit Provider Nurse Practitioner Family
DX: Z00.00 Encounter for general adult medical examination without abnormal findings (principal); E55.9 Vitamin D deficiency, unspecified

== ENCOUNTER → 2024-09-07 13:38 | Outpatient (BNVA) | payer BC, SELFPAY | PROVIDERS: PCP Nurse Practitioner Family; Visit Provider Nurse Practitioner Family | DX: Z00.00 Encounter for general adult medical examination without abnormal findings (principal); E55.9 Vitamin D deficiency, unspecified | CPT/HCPCS: 96127 ==

== ENCOUNTER 2025-03-15 13:59 | Outpatient (AMB) | payer BC, SELFPAY ==
--- NOTE | 2025-03-15 14:19 | A.OFFPC_ITS ---
Vital Signs 03/15/25 14:20 Weight 182 lb BP 112/54 L Blood Pressure Location Lt brachial Position Sitting Pulse 59 Pulse Source Pulse Oximeter Temp 98.2 F Temp Source Oral Intake Visit Reasons: 6m follow up Power Switchboard Operator Required: No Accompanied by: Spouse Allergies pravastatin Allergy (Verified 03/15/25 14:24) Unknown shellfish derived Allergy (Verified 03/15/25 14:24) Unknown atorvastatin Adverse Reaction (Unknown, Verified 03/15/25 14:24) Diarrhea Tobacco use date assessed: 03/15/25 Fall risk assessment: No Falls in past year Last assessed Fall Risk: 03/15/25 Dental Screening Dental Screen Date: 03/15/25 Did you have a dental visit in the last 12 months?: Yes Did you have a dental problem in the last 6 months where you did not have access to dental care?: No Was dental information given to patient?: Patient has dentist HPI 6m follow up HPI Details Chief Complaint The patient presents for a follow-up visit for management of hypertension. History of Present Illness The patient is a 74-year-old male presenting for a follow-up visit for hypertens ion. He denies any chest pain or shortness of breath. He has a recent diagnosis of stage 3 prostate carcinoma and is being followed by an oncology team. The patient is scheduled to begin radiation therapy and testosterone-lowering injections as part of his treatment plan. Social History Health Maintenance - The patient is under the care of an on cology team for management of prostate carcinoma. - Labs are being obtained through his on cology team, and additional labs will be ordered by this office. Review of Systems - Cardiovascular: Denies chest pain. - Respiratory: Denies shortness of breat h. -denies any ROSAS, blurred vision Physical Exam General: Cooperative, healthy appearing, comfortable, no acute distress and well developed Orientation: Patient oriented x3 Limitations: No limitations Head: Normal to inspection Ears: Hearing grossly normal bilaterally Nose: Normal external nose present Face and sinus: Normal facial exam Eyes: Appearance normal, both eyes and all related structures Neck: Normal visual inspection and Yes full ROM Respiratory: Normal respiratory effort and able to speak in complete sentences. Clear to auscultation bilaterally Cardiovascular: Regular rate and rhythm. Normal S1 and S2. No carotid bruits noted GI: Normal to inspection. Soft to palpation and nontender Skin: No rashes or lesions noted Neuro: Patient oriented x3 Extremities: Normal to inspection. No edema noted Results Plan 1. Hypertension The patient presents for a routine follow-up of hypertension and is asymptomatic, denying chest pain or shortness of breath. Monitoring will continue, and labs will be ordered to supplement those being done by oncology. 2. Prostate Carcinoma The patient has a recent diagnosis of stage 3 prostate carcinoma and is under the care of an oncology team. He will begin radiation and testosterone-lowering injections as per the oncologist's guidance. Care will be coordinated with the oncology team. Discussion Notes I addressed the patient's follow-up for hypertension and noted his recent diagnosis of stage 3 prostate carcinoma. We discussed that he is under the care of oncology and will soon start radiation and testosterone-decreasing injections. I informed the patient that in addition to the labs being performed by his oncology team, I will order my own labs as well. I wished him luck with his upcoming treatment. Patient Instructions - Continue to monitor your blood pressur e as directed. - Follow the treatment plan from your ca ncer specialist (oncologist), which will include radiation and injections to lower testosterone. - Please complete the lab work that my o ffice will order for you. PENDING SALE TO [facility] Medical History Ventricular ectopy Diastolic dysfunction COPD (chronic obstructive pulmonary disease) Raynauds disease Coronary artery disease HTN (hypertension) Hiatal hernia Psoriasis GERD (gastroesophageal reflux disease) Barretts esophagus Surgical History History of cataract surgery H/O colonoscopy H/O endoscopy History of inguinal hernia repair, bilateral History of appendectomy Family History Father Myocardial infarction Mother Breast cancer Social History Housing: House Alcohol intake: current Alcohol intake frequency: does not drink Alcohol type: beer Patient Tobacco Use Status: Never used Tobacco e-Cigarette/Vaping Use: Never Used Second Hand Smoke Exposure: No service: No Current occupational status: retired Cognitive needs: No Hearing needs: No Vision needs: No Questionnaire PHQ-9 Over the last 2 weeks, how often have you been bothered by any of the following problems? 1. Little interest or pleasure in doing things: not at all 2. Feeling down, depressed, or hopeless: not at all 3. Trouble falling or staying asleep, or sleeping too much: not at all 4. Feeling tired or having little energy: not at all 5. Poor appetite or overeating: not at all 6. Feeling bad about yourself - or that you are a failure or have let yourself or your family down: not at all 7. Trouble concentrating on things, such as reading the newspaper or watching television: not at all 8. Moving or speaking so slowly that other people could have noticed. Or the opposite - being so fidgety or restless that you have been moving around a lot more than usual: not at all 9. Thoughts that you would be better off or of hurting yourself in some way: not at all Total score: 0 Depression Screening Interpretation: Negative Depression Screening Done: Yes 81882 - PHQ-9 Billing: Patient declined-do not bill Source: Developed by Drs. Amaury Toledo, Corry Casarez, Cristino Stringer and colleagues, with an educational jack from [employer]. Thrive Questionnaire Date Thrive assessed: 08/31/24 I am a: Patient What is your living situation today?: I have a steady place to live Within the past 12 months, did the food you bought not last and you didn't have the money to get more?: Never true Within the past 12 months, did you worry whether your food would run out before you got money to buy more?: Never true Do you have trouble paying for medicines?: No Do you have trouble getting transportation to medical appointments?: No Do you have trouble paying your heating and electricity bill?: No Do you have trouble taking care of your child, family member or friend?: No Do you have trouble with day-to-day activities such as bathing, preparing meals, shopping, managing finances, etc.?: No Are you currently unemployed and looking for a job?: No Are you interested in more education?: No Please select the resources that you would like help with: None Currently or been in a relationship where the following occur: No concerns reported THRIVE Score: 0 AGUSTO-7 AMB Questionnaire AGUSTO-7 Date AGUSTO - 7 assessed: 03/15/25 Feeling nervous, anxious, or on edge: 0 = Not at all Not being able to stop or control worryin = Not at all Worrying too much about different things: 0 = Not at all Trouble relaxin = Not at all Being so restless that it is hard to sit still: 0 = Not at all Becoming easily annoyed or irritable: 0 = Not at all Feeling afraid as if something awful might happen: 0 = Not at all Total AGUSTO-7 score (0-4 normal; 5-9 mild; 10-14 moderate; 15-21 severe): 0 Source: Developed by Drs. Amaury Toledo, Corry Casarez, Cristino Stringer and colleagues, with an educational jack from [employer]. AGUSTO-7 Assessment Billing AGUSTO-7 Assessment Tool: AGUSTO-7 Assessment 21434 Physical exam (Primary Care) Vital Signs: Last Vital Signs Temp 98.2 F 03/15/25 14:20 Pulse 59 03/15/25 14:20 BP 112/54 L 03/15/25 14:20 Tobacco/Smoking Status: Tobacco use Status Tobacco use date assessed 03/15/25 03/15/25 14:25 Patient Tobacco Use Status Never used Tobacco 03/15/25 14:23 e-Cigarette/Vaping Use Never Used 03/15/25 14:23 PHQ-9: PHQ-9 Score PHQ-9: Total score 0 03/15/25 14:25 Depression Screening Interpretation: Negative Thrive Assessment: Date of Thrive Assessment Date Thrive assessed 08/31/24 03/15/25 14:23 Currently or been in a relationship where the following occur: No concerns reported Coding Level of Care Code Est Pt Level 3 (93054) Diagnoses HTN (hypertension) I10 Additional Codes AGUSTO-7 Assessment Billing - AGUSTO-7 Assessment Tool: AGUSTO-7 Assessment 38045 ([id number]) Assessment & Plan Assessment & Plan (1) HTN (hypertension): Code(s): I10 - Essential (primary) hypertension Category: Medical Plan .
[2025-03-15 14:20] VITALS: BP 112/54; PULSE 59; TEMP 36.8
--- OUTSIDE RECORDS SUMMARY | 2025-03-15 17:08 | XMS_ITS | Patient Health Record ---
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 Role Phone LENA RHODES Primary Care Provider Sagar Bloom Jr Unavailable [phone] Allergies Allergen (clinical drug ingredient) Drug/Non Drug Allergy documented on EMR Reaction Allergy Type Onset Date Status Substance with 4-qapyxcs-8-methylgluta ryl-coenzyme A reductase inhibitor mechanism of action (substance) Statins Unknown Drug Allergy Active Reason For Referral No Information Medications Medication SIG (Take, Route, Frequency, Duration) Notes Start Date End Date Status Vitamin D-3 2000 units Orally Once a day Active Metoprolol Succinate ER 50 MG 1 tablet Orally Once a day 1 1/2 a day Active Omeprazole 20 MG as directed Orally Once a day Active Ezetimibe 10 MG 1 tablet Orally Once a day Active Aspirin 81 1 tablet Orally Once a day Active MiraLax (colon prep) 17 GM/SCOOP mixed with Gatorade or Crystal Light Orally begin at 5:00 p.m. the day before the procedure; Duration: 1 day 02/03/2023 Active prednisoLONE 5 MG 1 tablet in the morning with food or milk Orally Once a day; Duration: 30 day(s) stopped today Active amLODIPine Besylate 5 MG 1 tablet Orally Once a day; Duration: 30 day(s) Active Lisinopril 10 MG 1 tablet Orally twic e a day Active Immunizations Vaccine Route Administration Date Status Comme nts Influenza Unknown 02/06/2020 Administered Influenza Unknown 01/08/2021 Administered Influenza Unknown 01/27/2023 Administered Social History Tobacco Use: Social History Observation Description Date Details (start date - stop date) Never Smoker NA - NA Tobacco Use/Smoking Question Answer Notes Patient is a nonsmoker Alcohol Screen Question Answer Notes Did you have a drink contain ing alcohol in the past year? Yes How often did you have a dri nk containing alcohol in the past year? 2 to 4 times a month (2 points) How many drinks did you have on a typical day when you were drinking in the past year? 1 or 2 drinks (0 point) How often did you have 6 or more drinks on one occasion in the past year? Never (0 point) Points 2 Interpretation Negative Problems Problem Type SNOMED Code ICD Code Onset Dates Problem Status W/U Status Risk Notes Problem Colon cancer screening (740526616) Colon cancer screening (Z12.11) Active confirmed Problem Loyd's esophagus (521728631) Loyd's esophagus without dysplasia (K22.70) Active confirmed Problem Diarrhea (42920456) Diarrhea, unspecified (R19.7) Active confirmed Problem Gastroesophageal reflux disease without esophagitis (338226344) Gastroesophageal reflux disease without esophagitis (K21.9) Active confirmed Problem Loyd esophagus (415883786) Loyd esophagus (K22.70) Active confirmed Problem Abnormal CT scan , sigmoid colon (R93.3) Active confirmed Problem Candidiasis of the esophagus (01897474) 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 Plan Of Treatment Pending Test Test Name Order Date CBC w/o DIFF 02/03/2023 TSH REFLEX FREE T4 02/03/2023 HIV Ab/Ag 03/06/2022 Future Test Test Name Order Date UPPER GI ENDOSCOPY 11/05/2021 COLONOSCOPY 02/03/2023 Insurance Providers Payer Name Payer Address Payer Phone Subscriber Number Group Number Insured Name Patient Relationship to Insured Coverage Start Date Coverage End Date [facility] [address] [place], [place] [id number] [phone] [id number] ALLIE CLARK Self - patient is the insured Medical (General) History Medical History History ICD Code hypertension Loyd's esophagus EGD/22, Lyssa esophagitis, treated with Diflucan, no intestinal metaplasia Ventricular ectopy Gastroesophageal reflux disease COPD Colonoscopy 2013, normal followup 2023. Surgical History Surgery Date(Month/Year) appendectomy hernia repair eye surgeries cateracts and floaters rem vanessa bilateral
--- OUTSIDE RECORDS SUMMARY | 2025-03-15 17:08 | XMS_ITS | Encounter Summary ---
Author Organization [facility] Address [address] [place] [address] Care Team Providers Care Replenishment Specialist Name Role Phone Physician, No Pcp Primary Care Provider Unavaila ble Encounter Details Date Type Department Care Team (Late st Contact Info) Description 01/23/2025 Lab Requisition [facility] - Main Lab [address] [place] [address] Noé Campoverde MD [address] [place], [place] [id number] Elevated prostate specific antigen (PSA) Social History Tobacco Use Types Packs/Day Years Used Date Smoking Tobacco: Never Assessed Sex and Gender Information Value Date Recorded Sex Assigned at Not on file Legal Sex Male 11:44 AM EDT Gender Identity Not on file Sexual Orientation Not on file documented as of this encounter Plan of Treatment Not on file documented as of this encounter Procedures Procedure Name Priority Date/Time Associated Diagnosis Comments TISSUE EXAM Routine 01/16/2025 Elevated prostate specific antigen (PSA) documented in this encounter Results * Tissue Exam (01/16/2025) Final Diagnosis A. Prostate, Left Middle [place] Biopsy: Acinar adenocarcinoma, grade group 2 ([place] score 3+4=7), 1.5 mm in length, involving 25% of one core Perineural invasion present B. Prostate, Left Lateral [place] Biopsy: Acinar adenocarcinoma, grade group 2 ([place] score 3+4=7), 4 mm in length, involving 30% of one core Cribriform glands present Perineural invasion present C. Prostate, Left Middle [place] Biopsy: Acinar adenocarcinoma, grade group 2 ([place] score 3+4=7), 2 mm in length, involving 15% of one core Perineural invasion present D. Prostate, Left Lateral [place] Biopsy: Acinar adenocarcinoma, too small to grade, 0.25 mm in length, involving 3% of one core E. Prostate, Left Middle [place] Biopsy: Acinar adenocarcinoma, grade group 1 ([place] score 3+3=6), 0.4 mm in length, involving 3% of one core F. Prostate, Left Lateral [place] Biopsy: Benign prostatic tissue G. Prostate, Right Middle [place] Biopsy: Acinar adenocarcinoma, grade group 1 (Deanna score 3+3=6), 2.25 mm in length, involving 15% of one core H. Prostate, Right Lateral [place] Biopsy: Benign prostatic tissue I. Prostate, Right Middle [place] Biopsy: Benign prostatic tissue J. Prostate, Right Lateral [place] Biopsy: Benign prostatic tissue K. Prostate, Right Middle [place] Biopsy: Acinar adenocarcinoma, grade group 3 ([place] score 4+3=7), 5.5 mm in length, discontinuously involving 30% of one core L. Prostate, Right Lateral [place] Biopsy: Acinar adenocarcinoma, grade group 3 (Deanna score 4+3=7), 8 mm in length, involving 50% of one core Cribriform glands present 01/24/2025 2:06 PM EDT [facility] at 1406 EDT Clinical Information Elevated PSA = 7.1 (12/01/24) [id number] 01/24/2025 2:06 PM EDT [facility] Gross Description A. Prostate, Left Middle [place] Biopsy: Received, properly labeled, are two H and E stained slides and two unstained slides. B. Prostate, Left Lateral [place] Biopsy: Received, properly labeled, are two H and E stained slides and two unstained slides. C. Prostate, Left Middle [place] Biopsy: Received, properly labeled, are two H and E stained slides and two unstained slides. D. Prostate, Left Lateral [place] Biopsy: Received, properly labeled, are two H and E stained slides and two unstained slides. E. Prostate, Left Middle [place] Biopsy: Received, properly labeled, are two H and E stained slides and two unstained slides. F. Prostate, Left Lateral [place] Biopsy: Received, properly labeled, are two H and E stained slides and two unstained slides. G. Prostate, Right Middle [place] Biopsy: Received, properly labeled, are two H and E stained slides and two unstained slides. H. Prostate, Right Lateral [place] Biopsy: Received, properly labeled, are two H and E stained slides and two unstained slides. I. Prostate, Right Middle [place] Biopsy: Received, properly labeled, are two H and E stained slides and two unstained slides. J. Prostate, Right Lateral [place] Biopsy: Received, properly labeled, are two H and E stained slides and two unstained slides. K. Prostate, Right Middle [place] Biopsy: Received, properly labeled, are two H and E stained slides and two unstained slides. L. Prostate, Right Lateral [place] Biopsy: Received, properly labeled, are two H and E stained slides and two unstained slides. /al 01/24/2025 2:06 PM EDT [facility] Disclaimer Unless otherwise specified, all tissue is 10% NB formalin fixed and paraffin embedded. Technical pathology services provided by [facility] at [address] [place] [address] [address], [place] [address] (CLIA #[id number]/Latha Pacheco MD, Hand Umbrella Tipper) 01/24/2025 2:06 PM EDT [facility] Tissue Prostate / Unknown 01/16/20252024 11:51 AM EDT Tissue specimen (specimen) Prostate / Unknown 01/16/2025 01/23/2025 11 :51 AM EDT Tissue specimen (specimen) Prostate / Unknown 01/16/2025 01/23/2025 11 :51 AM EDT Tissue specimen (specimen) Prostate / Unknown 01/16/2025 01/23/2025 11 :51 AM EDT Tissue specimen (specimen) Prostate / Unknown 01/16/2025 01/23/2025 11 :51 AM EDT Tissue specimen (specimen) Prostate / Unknown 01/16/2025 01/23/2025 11 :51 AM EDT Tissue specimen (specimen) Prostate / Unknown 01/16/2025 01/23/2025 11 :51 AM EDT Tissue specimen (specimen) Prostate / Unknown 01/16/2025 01/23/2025 11 :51 AM EDT Tissue specimen (specimen) Prostate / Unknown 01/16/2025 01/23/2025 11 :51 AM EDT Tissue specimen (specimen) Prostate / Unknown 01/16/2025 01/23/2025 11 :51 AM EDT Tissue specimen (specimen) Prostate / Unknown 01/16/2025 01/23/2025 11 :51 AM EDT Tissue specimen (specimen) Prostate / Unknown 01/16/2025 01/23/2025 11 :51 AM EDT us Noé Campoverde MD LAB PATHOLOGY ORDERABLES Fi nal Result [facility] [address] [place] [address], documented in this encounter Visit Diagnoses Diagnosis Elevated prostate specific antigen (PSA) documented in this encounter Care Teams Replenishment Specialist Relationship Specialty Start Date End Date Physician, No Pcp PCP - General 01/23/25 documented as of this encounter
--- OUTSIDE RECORDS SUMMARY | 2025-03-15 17:08 | XMS_ITS | Clinical Summary ---
Author Organization [address] [facility] Address [address] [place] [address] Phone Care Team Providers Care Closed Circuit Screen Watcher Name Role Phone Physician, No Pcp Primary Care Provider Unavaila ble Encounters Date Type Department Care Team Description 01/23/2025 Lab Requisition [facility] - Main Lab [address] [place] [address] Noé Campoverde MD Elevated prostate specific antigen (PSA) from Last 3 Months Social History Tobacco Use Types Packs/Day Years Used Date Smoking Tobacco: Never Assessed Sex and Gender Information Value Date Recorded Sex Assigned at Not on file Legal Sex Male 11:44 AM EDT Gender Identity Not on file Sexual Orientation Not on file Plan of Treatment Health Maintenance Due Date Last Done Comments Colorectal Cancer Screening: Colonoscopy 1950 DTaP,Tdap,and Td Vaccines (1 - Tdap) 1968 Pneumococcal Vaccine: 50+ Ye ars (1 of 1 - PCV) 1999 Zoster Vaccines (1 of 2) 1999 Depression Screening 05/10/2024 RSV Immunization Adult Patie nts (1 - 1-dose 75+ series) 2024 COVID-19 Vaccine (1 - 2023-2 5 season) 2025 Influenza Vaccine (#1) 2025 Abdominal Aortic Aneurysm (A AA) Screen 01/23/2025 Cholesterol Screening (Lipid Panel) 01/23/2025 Falls Risk Assessment 01/23/2025 Hepatitis C Screening 01/23/2025 Social Influencers of Health Screening 01/23/2025 HIB Vaccines Aged Out No longer eligi ble based on patient's age to complete this topic HPV Vaccines Aged Out No longer eligi ble based on patient's age to complete this topic Hepatitis A Vaccines Aged Out No long er eligible based on patient's age to complete this topic Hepatitis B Vaccines Aged Out No long er eligible based on patient's age to complete this topic IPV Vaccines Aged Out No longer eligi ble based on patient's age to complete this topic MMR Vaccines Aged Out No longer eligi ble based on patient's age to complete this topic Meningococcal ACWY Vaccine Aged Out N o longer eligible based on patient's age to complete this topic Meningococcal B Vaccine Aged Out No l onger eligible based on patient's age to complete this topic RSV Immunization Patients Un lilli 20 months Aged Out No longer eligible b ased on patient's age to complete this topic Varicella Vaccines Aged Out No longer eligible based on patient's age to complete this topic Procedures Procedure Name Priority Date/Time Associated Diagnosis Comments TISSUE EXAM Routine 01/16/2025 Elevated prostate specific antigen (PSA) from Last 3 Months Results * Tissue Exam (01/16/2025) Final Diagnosis A. Prostate, Left Middle [place] Biopsy: Acinar adenocarcinoma, grade group 2 ([place] score 3+4=7), 1.5 mm in length, involving 25% of one core Perineural invasion present B. Prostate, Left Lateral [place] Biopsy: Acinar adenocarcinoma, grade group 2 ([place] score 3+4=7), 4 mm in length, involving 30% of one core Cribriform glands present Perineural invasion present C. Prostate, Left Middle [place] Biopsy: Acinar adenocarcinoma, grade group 2 (Deanna score 3+4=7), 2 mm in length, involving [...] Benign prostatic tissue G. Prostate, Right Middle [place] Biopsy: Acinar adenocarcinoma, grade group 1 (Deanna score 3+3=6), 2.25 mm in length, involving 15% of one core H. Prostate, Right Lateral [place] Biopsy: Benign prostatic tissue I. Prostate, Right Middle [place] Biopsy: Benign prostatic tissue J. Prostate, Right Lateral [place] Biopsy: Benign prostatic tissue K. Prostate, Right Middle [place] Biopsy: Acinar adenocarcinoma, grade group 3 (Deanna score 4+3=7), 5.5 mm in length, discontinuously involving 30% of one core L. Prostate, Right Lateral [place] Biopsy: Acinar adenocarcinoma, grade group 3 ([place] score 4+3=7), 8 mm in length, involving 50% of one core Cribriform glands present 01/24/2025 2:06 PM EDT [facility] at 1406 EDT Clinical Information Elevated PSA = 7.1 (12/01/24) [id number] 01/24/2025 2:06 PM EDT [facility] Gross Description A. Prostate, Left Middle [place] Biopsy: Received, properly labeled, are two H and E stained slides and two unstained slides. B. Prostate, Left Lateral [place] Biopsy: Received, properly labeled, are two H [...] two unstained slides. G. Prostate, Right Middle [place] Biopsy: Received, properly labeled, are two H and E stained slides and two unstained slides. H. Prostate, Right Lateral [place] Biopsy: Received, properly labeled, are two H [...] unstained slides. /al 01/24/2025 2:06 PM EDT [facility] Disclaimer Unless otherwise specified, all tissue is 10% NB formalin fixed and paraffin embedded. Technical pathology services provided by [facility] at [address], [place] [address] (CLIA #[id number]/Latha Pacheco MD, Mission Worker) 01/24/2025 2:06 PM EDT [facility] Tissue Prostate / Unknown 01/16/20252024 [...] MD LAB PATHOLOGY ORDERABLES Fi nal Result [facility] [address] [place] [address], [place] [phone] from Last 3 Months Insurance [facility] ([facility] Care Teams Closed Circuit Screen Watcher Relationship Specialty Start Date End Date Physician, No Pcp PCP - General 01/23/25
== END 2025-03-15 15:38 | disposition home or self-care (01) ==
LOC: HO.HMCC 14:01
PROVIDERS: PCP Nurse Practitioner Family; Visit Provider Nurse Practitioner Family
DX: I10 Essential (primary) hypertension (principal)

== ENCOUNTER → 2025-03-15 13:59 | Outpatient (BNVA) | payer BC, SELFPAY | PROVIDERS: PCP Nurse Practitioner Family; Visit Provider Nurse Practitioner Family | DX: I10 Essential (primary) hypertension (principal) | CPT/HCPCS: 96127 ==